=== PATIENT | female | born 1975 | race African-American/Black ===

== ENCOUNTER 2017-11-27 11:24 | Emergency (ER) | payer BC ==
[~2017-11-27] VITALS: Ht 165.1 cm; Wt 74.5 kg
[~2017-11-27 11:24] MED LIST: BACTRIM,SEPT1 TABLET PO; HYDROCODON-ACE1 EAC7 PO; MACROBID100 MG PO; MOTRIN800 MG PO; ULTRAM50 MG PO
[2017-11-27 11:50] LABS: APPEARANCE CLOUDY ((CLEAR)); BILIRUBIN SMALL; BLOOD NEGATIVE; COLOR AMBER ((YELLOW)); GLUCOSE (STRIP) NEGATIVE; KETONES 5; LEUKOCYTES NEGATIVE; NITRITE NEGATIVE; PROTEIN (STRIP) 30; SPECIFIC GRAVITY 1.033 (1.000-1.030)
[2017-11-27 13:02] LABS: EPITHELIAL CELLS 2+ /HPF; MUCUS 3+ /LPF; RED BLOOD CELLS 0-5 /HPF (0-5); WHITE BLOOD CELLS 0-5 /HPF (0-5)
[2017-11-27 13:03] LABS: AMORPHOUS URATES CRYSTALS 1+; BACTERIA 1+ /HPF
[2017-11-27 14:40] LABS: SOURCE SWAB
[2017-11-27] MEDS ORDERED: TERAZOL 745 GM VG (16:15)
[2017-11-27] MEDS ORDERED: KEFLEX500 MG PO (16:15)
[2017-11-27 16:41] VITALS: BP 122/92
[2017-11-27 21:45] LABS: CANDIDA DNA PROBE NEGATIVE; GARDNERELLA DNA PROBE POSITIVE; TRICHOMONAS DNA PROBE NEGATIVE
== END 2017-11-27 16:45 | disposition home or self-care (01) ==
LOC: EME 11:24
PROVIDERS: Nurse Practitioner Family
DX: N89.8 Other specified noninflammatory disorders of vagina (principal); R30.0 Dysuria; L29.2 Pruritus vulvae; F17.200 Nicotine dependence, unspecified, uncomplicated; Z98.51 Tubal ligation status
CPT/HCPCS: 76856; 81003; 81025; 87480; 87491; 87510; 87591; 87660; 99281; 99284; J0696